=== PATIENT | female | born 1955 | race Caucasian/White ===

== ENCOUNTER 2016-12-18 00:35 | Inpatient (IN) | payer OTHER ==
[2016-12-18] VITALS (7 sets, daily range): BP systolic 108–133; BP diastolic 53–69
[~2016-12-18] VITALS: Ht 157.5 cm; Wt 76.4 kg
[2016-12-18 01:29] LABS: Hematocrit 45.2 % (36.0-46.0); Mean Corpuscular Hemoglobin 32.9 pg (28.0-32.0); Mean Corpuscular Hgb Conc. 33.3 g/dL (32.0-36.0); Mean Platelet Volume 10.1 fL (7.4-10.4); Platelet Count (auto) 244 10^3/uL (140-450); Red Cell Distribution Width 13.6 % (11.6-16.0); SUSPECT VIEW TRANSMISSION; White Blood Cell 25.5 10^3/uL (4.4-10.8)
[2016-12-18 01:34] LABS: Metamyelocytes % 0; Myelocytes % 0; Promyelocytes % 0; Reactive Lymphocytes 0
[2016-12-18 01:42] LABS: INR 1.08 (0.9-1.15); Partial Thromboplastin Time 29.8 sec (22.64-33.71); Prothrombin Time 11.7 sec (9.37-12.3)
[2016-12-18 01:50] LABS: Temperature: 21.4 C (20.0-25.0)
[2016-12-18 01:53] LABS: Hypersegmented Neutrophils Present; Platelet Estimate Adequate
[2016-12-18 01:54] LABS: Anion Gap 11 (5-15); Aspartate Aminotransferase 16 U/L (15-37); BUN/Creatinine Ratio 19.4; Blood Urea Nitrogen 18 mg/dL (7-18); Calcium 8.8 mg/dL (8.5-10.1); Carbon Dioxide 27 mmol/L (21-32); Chloride 98 mmol/L (98-107); GFR African American 79 mL/min; GFR Non-African American 65 mL/min; Glucose 173 mg/dL (74-106); Magnesium 1.9 mg/dL (1.6-2.6); Potassium 3.5 mmol/L (3.5-5.1); Sodium 136 mmol/L (136-145)
[2016-12-18 01:58] LABS: Alkaline Phosphatase 73 U/L (45-117); Bilirubin, Total 0.9 mg/dL (0.2-1.0); Total Protein 7.6 g/dL (6.4-8.2)
[2016-12-18] MEDS ORDERED: SODIUM CHLORIDE 0.9% 1,000 ML IV ONE (04:00)
[2016-12-18] MEDS ORDERED: cefTRIAXone 1GM/50ML D5W 50 ML IV ONE ×2 (04:00→13:45)
[2016-12-18] MEDS ORDERED: ONDANSETRON HCL 4 MG/2 ML VIAL IV PRN (06:00)
[2016-12-18] MEDS ORDERED: TEMAZEPAM 15 MG CAP PO PRN (06:00)
[2016-12-18] MEDS ORDERED: MORPHINE SULF INJ 2 MG/ML SYRINGE 1ML IV PRN (06:00)
[2016-12-18] MEDS: LEVOFLOXACIN 750MG 150 ML IV SCH ×2 (06:14→10:00)
[2016-12-18] MEDS ORDERED: ASCO500C49 PO (07:07)
[2016-12-18] MEDS ORDERED: PROBCAP9 OR (07:07)
[2016-12-18] MEDS ORDERED: FURO10SO PO (07:07)
[2016-12-18] MEDS ORDERED: SENN-46 PO (07:07)
[2016-12-18] MEDS ORDERED: CARV25TA55 PO (07:07)
[2016-12-18] MEDS ORDERED: DIGO0.1262 PO (07:07)
[2016-12-18] MEDS ORDERED: LORA-154 GT (07:07)
[2016-12-18] MEDS ORDERED: LEVO75TA6 PO (07:07)
[2016-12-18] MEDS ORDERED: POTA10TA79 PO (07:07)
[2016-12-18] MEDS ORDERED: MULT-777 OR (07:07)
[2016-12-18] MEDS ORDERED: ENOXAPARIN SOD 40 MG/0.4 ML SYRINGE SC SCH (10:00)
[2016-12-18] MEDS: FAMOTIDINE 20 MG TAB PO SCH ×2 (11:15→21:58)
[2016-12-18] MEDS ORDERED: AZITHROMYCIN 250 MG TAB PO ONE (13:45)
[2016-12-18] MEDS: ACETAMINOPHEN 325 MG TAB PO PRN (14:56)
[2016-12-19] MEDS: ALBUTEROL SULF 2.5 MG/0.5ML(0.5%) NEB SOLN NEB PRN ×2 (00:13→08:25)
[2016-12-19 05:06] VITALS: BP 129/59
[2016-12-19 06:03] LABS: Basophils # (auto) 0 uL; Basophils % (auto) 0.3 % (0.0-2.0); Eosinophils # (auto) 0.2 uL; Eosinophils % (auto) 2.2 % (0.0-7.0); Hematocrit 38.4 % (36.0-46.0); Hemoglobin 12.8 g/dL (12.2-16.2); Lymphocytes % (auto) 10.3 % (10.0-50.0); Mean Corpuscular Hemoglobin 32.6 pg (28.0-32.0); Mean Corpuscular Hgb Conc. 33.3 g/dL (32.0-36.0); Mean Corpuscular Volume 97.9 fL (80.0-100.0); Mean Platelet Volume 9.8 fL (7.4-10.4); Monocytes # (auto) 0.8 uL; Monocytes % (auto) 8.1 % (0.0-12.0); Neutrophils # (auto) 7.7 uL; Neutrophils % (auto) 79.1 % (37.0-80.0); Platelet Count (auto) 179 10^3/uL (140-450); Red Cell Distribution Width 14.6 % (11.6-16.0); White Blood Cell 9.7 10^3/uL (4.4-10.8)
[2016-12-19 06:12] LABS: Potassium 3.7 mmol/L (3.5-5.1)
[2016-12-19 06:16] LABS: Albumin 3.1 g/dL (3.4-5.0); BUN/Creatinine Ratio 16.1; Calcium 8.5 mg/dL (8.5-10.1)
[2016-12-19 06:31] LABS: Bilirubin, Total 0.5 mg/dL (0.2-1.0); Total Protein 6.4 g/dL (6.4-8.2)
[2016-12-19] MEDS: ACETAMINOPHEN 325 MG TAB PO PRN (08:57)
[2016-12-19 09:00] VITALS: BP 126/48
[2016-12-19] MEDS ORDERED: cefTRIAXone 1GM/50ML D5W 50 ML IV SCH (09:00)
[2016-12-19] MEDS ORDERED: GLUCTAB OR (09:10)
[2016-12-19] MEDS ORDERED: VITA100T3 PO (09:10)
[2016-12-19] MEDS ORDERED: FOLI1TAB6 PO (09:10)
[2016-12-19] MEDS ORDERED: AZITHROMYCIN 250 MG TAB PO SCH (10:00)
[2016-12-19 11:40] VITALS: BP 126/48
== END 2016-12-19 15:30 | disposition home or self-care (01) | DRG 871 ==
LOC: ER 00:37 → EAST 00:38
PROVIDERS: ADMIT Nurse Practitioner; ATTEND Internal Medicine Pulmonary Disease
DX: A41.9 Sepsis, unspecified organism (principal); J13 Pneumonia due to Streptococcus pneumoniae; M19.90 Unspecified osteoarthritis, unspecified site; J45.909 Unspecified asthma, uncomplicated; I11.0 Hypertensive heart disease with heart failure; I50.9 Heart failure, unspecified; Z84.1 Family history of disorders of kidney and ureter; Z88.0 Allergy status to penicillin; Z88.8 Allergy status to other drugs, medicaments and biological substances; Z88.6 Allergy status to analgesic agent; Z91.09 Other allergy status, other than to drugs and biological substances
CPT/HCPCS: 36415; 36600; 71010; 71020; 80053; 82805; 83605; 83735; 83880; 84484; 85007; 85025; 85027; 85379; 85610; 85730; 87040; 93005; 94640; 94761; 96365; J0696; J1956